=== PATIENT | female | born 1955 | race Caucasian/White ===

== ENCOUNTER → 2019-08-03 | Outpatient (CLI) | payer OTHER ==
[~2019-08-03] MED LIST: COZAAR 25 MG TA25 M1 PO; NORVASC10 MG PO
== END ==
LOC: M.RAD 11:00
DX: Z12.31 Encounter for screening mammogram for malignant neoplasm of breast (principal); M85.88 Other specified disorders of bone density and structure, other site

== ENCOUNTER → 2019-08-17 | Outpatient (CLI) | payer OTHER | LOC: M.RAD 10:34 | DX: N60.01 Solitary cyst of right breast (principal); R92.2 Inconclusive mammogram ==

== ENCOUNTER 2020-12-14 16:47 | Inpatient (IN) | payer OTHER ==
[~2020-12-14] VITALS: Ht 172.7 cm; Wt 113.0 kg
[2020-12-14 16:58] VITALS: BP 118/79
[2020-12-14] MEDS ORDERED: LOPRESSOR50 MG PO (16:59)
[2020-12-14 17:17] LABS: HEMATOCRIT 33.6 % (37.0-47.0); HEMOGLOBIN 10.6 gm/dL (12.0-15.0); MCH 25.7 pg (26.0-34.0); MCHC 31.5 g/dL (28.0-37.0); MCV 81.4 fL (80.0-100.0); MPV 7.6 fl. (7.2-11.1); NUCLEATED RBCS 0 /100WBC; PLATELET COUNT* 781 thou/uL (150-400); RBC 4.13 mil/uL (4.20-5.00); RDW-CV 16.6 % (10.5-14.5); WBC 21.2 thou/uL (4.0-11.0)
[2020-12-14 17:22] LABS: CALCIUM 8.9 mg/dL (8.5-10.1); CREATININE 0.9 mg/dL (0.6-1.3); POTASSIUM 3.6 mmol/L (3.5-5.1)
[2020-12-14 17:27] LABS: ALBUMIN 2.2 g/dL (3.4-5.0); TOTAL BILIRUBIN 0.4 mg/dL (<0.1-1.0); TOTAL PROTEIN 6.8 g/dL (6.4-8.2)
[2020-12-14 18:29] LABS: ABSOLUTE EOSINOPHILS 0.2 thou/uL (0.0-0.7); ABSOLUTE LYMPHOCYTES 2.3 thou/uL (0.8-5.3); ABSOLUTE MONOCYTES 1.3 thou/uL (0.0-1.2); ABSOLUTE NEUTROPHILS 17.4 thou/uL (1.6-8.1)
[2020-12-14 18:30] LABS: PLATELET ESTIMATE INCREASED
[2020-12-14 18:31] LABS: LARGE PLATELETS OCCASIONAL
[2020-12-14 18:32] LABS: ANISOCYTOSIS 1+; POLYCHROMASIA 1+
[2020-12-14 18:45] VITALS: BP 115/70
[2020-12-14 20:00] VITALS: BP 113/63
[2020-12-15] VITALS: BP 105/63
[2020-12-15 03:27] LABS: HEMATOCRIT 29.4 % (37.0-47.0); HEMOGLOBIN 9.3 gm/dL (12.0-15.0); MCH 25.9 pg (26.0-34.0); MCHC 31.7 g/dL (28.0-37.0); MCV 81.8 fL (80.0-100.0); MPV 7.6 fl. (7.2-11.1); RBC 3.59 mil/uL (4.20-5.00); RDW-CV 15.9 % (10.5-14.5); WBC 13.1 thou/uL (4.0-11.0)
[2020-12-15 03:40] LABS: CALCIUM 8.4 mg/dL (8.5-10.1); CREATININE 0.5 mg/dL (0.6-1.3); MAGNESIUM 2.3 mg/dL (1.8-2.4); POTASSIUM 4.1 mmol/L (3.5-5.1)
[2020-12-15 07:52] VITALS: BP 122/67
--- NOTE | 2020-12-15 10:29 | EKG ---
[place] [address] ELECTROCARDIOGRAM REPORT Name: JOSE LUIS PEDERSEN Room: [address] [place] .R.#: [id number] Admission: 12/14/20 Attend Phys: Joel Watters, Discharge: Date of : 51 Date of Service: 12/14/20 1655 Report #: [id number] THIS REPORT FOR: //name// [facility] ED Test Date: 2020-12-14 Test Time: 16:55:30 Pat Name: JOSE LUIS PEDERSEN Department: Room: [facility] Gender: F [employer]: [place] : 1955 Requested By: Roula Guzman Order Number: [id number] MD: Timo Gibson Measurements Intervals [place] Rate: 100 P: 32 VA: 135 QRS: -59 QRSD: 90 T: 64 QT: 329 QTc: 425 Interpretive Statements Sinus tachycardia Left anterior fascicular block Abnormal R-wave progression, late transition Left ventricular hypertrophy Baseline wander in lead(s) II,V1,V2 Compared to ECG 07/30/2015 16:54:22 Left ventricular hypertrophy now present Sinus rhythm no longer present Electronically Signed On 12-15-2020 10:29:34 [employer] by Timo Gibson [email or web address] <ELECTRONICALLY SIGNED> By: Esha Gibson MD, [facility] 12/15/20 1029 54 54 Esha Gibson MD, [facility] /EPI
[2020-12-15 16:42] VITALS: BP 117/57
[2020-12-15 20:00] VITALS: BP 107/54
[2020-12-16] VITALS: BP 106/66
[2020-12-16 04:58] LABS: CALCIUM 9.1 mg/dL (8.5-10.1); CREATININE 0.5 mg/dL (0.6-1.3); POTASSIUM 3.2 mmol/L (3.5-5.1)
[2020-12-16 05:14] LABS: ABSOLUTE LYMPHOCYTES 1.8 thou/uL (0.8-5.3); ABSOLUTE MONOCYTES 0.7 thou/uL (0.0-1.2); ABSOLUTE NEUTROPHILS 8.9 thou/uL (1.6-8.1); BASOPHILS 0.3 %; EOSINOPHILS 0.1 %; HEMATOCRIT 25.7 % (37.0-47.0); HEMOGLOBIN 8.2 gm/dL (12.0-15.0); LYMPHOCYTES 15.4 %; MCH 26.1 pg (26.0-34.0); MCV 81.7 fL (80.0-100.0); MONOCYTES 6.2 %; MPV 8.1 fl. (7.2-11.1); NUCLEATED RBCS 0 /100WBC; PLATELET COUNT* 522 thou/uL (150-400); RBC 3.15 mil/uL (4.20-5.00); RDW-CV 16.6 % (10.5-14.5); WBC 11.4 thou/uL (4.0-11.0)
[2020-12-16 07:42] VITALS: BP 110/62
[2020-12-16 16:00] VITALS: BP 113/58
[2020-12-16 20:00] VITALS: BP 123/66
[2020-12-17 04:25] VITALS: BP 118/73
[2020-12-17 04:50] LABS: ABSOLUTE LYMPHOCYTES 1.9 thou/uL (0.8-5.3); ABSOLUTE MONOCYTES 0.6 thou/uL (0.0-1.2); ABSOLUTE NEUTROPHILS 6.3 thou/uL (1.6-8.1); BASOPHILS 0.4 %; EOSINOPHILS 0.2 %; HEMATOCRIT 25.2 % (37.0-47.0); HEMOGLOBIN 8.2 gm/dL (12.0-15.0); LYMPHOCYTES 20.9 %; MCH 26.6 pg (26.0-34.0); MCHC 32.7 g/dL (28.0-37.0); MCV 81.3 fL (80.0-100.0); MONOCYTES 6.9 %; MPV 7.7 fl. (7.2-11.1); NUCLEATED RBCS 0 /100WBC; PLATELET COUNT* 478 thou/uL (150-400); POLYS 71.6 %; RDW-CV 16.6 % (10.5-14.5); WBC 8.9 thou/uL (4.0-11.0)
[2020-12-17 05:20] LABS: ALBUMIN 1.9 g/dL (3.4-5.0); CALCIUM 8.5 mg/dL (8.5-10.1); CREATININE 0.6 mg/dL (0.6-1.3); POTASSIUM 3.6 mmol/L (3.5-5.1); TOTAL BILIRUBIN 0.2 mg/dL (<0.1-1.0); TOTAL PROTEIN 5.9 g/dL (6.4-8.2)
[2020-12-17 08:00] VITALS: BP 120/70
[2020-12-17 15:56] VITALS: BP 112/62
[2020-12-17 21:11] VITALS: BP 117/62
[2020-12-18 04:31] LABS: ABSOLUTE LYMPHOCYTES 2.2 thou/uL (0.8-5.3); ABSOLUTE MONOCYTES 0.6 thou/uL (0.0-1.2); ABSOLUTE NEUTROPHILS 6.4 thou/uL (1.6-8.1); BASOPHILS 0.4 %; EOSINOPHILS 0.2 %; HEMATOCRIT 26.7 % (37.0-47.0); LYMPHOCYTES 23.6 %; MCH 27.3 pg (26.0-34.0); MCHC 33.8 g/dL (28.0-37.0); MCV 80.7 fL (80.0-100.0); MONOCYTES 6.4 %; MPV 7.9 fl. (7.2-11.1); NUCLEATED RBCS 0 /100WBC; PLATELET COUNT* 489 thou/uL (150-400); POLYS 69.4 %; RBC 3.31 mil/uL (4.20-5.00); RDW-CV 16.8 % (10.5-14.5); WBC 9.2 thou/uL (4.0-11.0)
[2020-12-18 05:32] LABS: ALBUMIN 2.1 g/dL (3.4-5.0); CALCIUM 8.8 mg/dL (8.5-10.1); CREATININE 0.5 mg/dL (0.6-1.3); POTASSIUM 3.5 mmol/L (3.5-5.1); TOTAL BILIRUBIN 0.2 mg/dL (<0.1-1.0); TOTAL PROTEIN 6.1 g/dL (6.4-8.2)
[2020-12-18 08:20] VITALS: BP 112/71
[2020-12-18] MEDS ORDERED: CEFDINIR300 MG PO (12:31)
[2020-12-18 15:57] VITALS: BP 112/71
== END 2020-12-18 16:00 | disposition home or self-care (01) | DRG 871 ==
LOC: M.ERS 16:47 → M.2W 17:49 → M.TBA-ER 17:49 → M.2W 19:02 → M.3W 12-18 06:49
PROVIDERS: Internal Medicine; Nurse Practitioner Family; Physician Assistant; ADMIT Internal Medicine; ATTEND Internal Medicine
DX: A41.9 Sepsis, unspecified organism (principal); J18.9 Pneumonia, unspecified organism; G43.909 Migraine, unspecified, not intractable, without status migrainosus; I10 Essential (primary) hypertension; I20.9 Angina pectoris, unspecified; Z20.822 Contact with and (suspected) exposure to COVID-19; Z90.710 Acquired absence of both cervix and uterus; Z87.891 Personal history of nicotine dependence